=== PATIENT | male | born 1985 | race Caucasian/White ===

== ENCOUNTER 2018-05-16 12:37 | Emergency (ER) | payer OTHER, SELFPAY ==
[2018-05-16 12:38] VITALS: BP 147/103; PULSE 100; RESP 16; TEMP 36.3; O2SAT 97; BMI 60.3
--- NOTE | 2018-05-16 13:48 | RAD_ITS ---
STUDY: X-RAY CHEST REASON FOR EXAM: Male, 32 years old. Left posterior rib pain following a fall. TECHNIQUE: PA and lateral views of the chest. COMPARISON: None. FINDINGS: The lungs are clear and expanded. There is no demonstrated pleural abnormality. Normal size heart. Normal mediastinum and lillian. Normal visualized pulmonary arteries. Normal visualized aortic arch and descending thoracic aorta. There are degenerative changes of the visualized thoracic spine. Normal visualized ribs, clavicles, and shoulders. There is no demonstrated abnormality of the visualized soft tissue structures of the upper abdomen. RAD/Chest PA and Lateral IMPRESSION: Normal x-ray examination of the chest. Electronically Signed: Jamal Bobo MD at 14:17 EST Tel [phone], Service support ,
[2018-05-16] MEDS: Ibuprofen 600 MG Tablet PO (14:22)
--- NOTE | 2018-05-16 15:02 | ED.VISSUMM ---
- ER Visit Summary Date of Service: 05/16/18 Chief Complaint: Fall at work complaining of left posterior lateral rib cage and parathoracic pain. History of Present Illness: The patient is a 32 M. Prior history of A. fib for which she is on sotalol. Patient was walking in the work today slipped on the ice fell to both knees but is actual pain is in his left lower posterior back and rib cage. No head injury. No LOC. No prior back surgery. No weakness or numbness. Physical Examination: Well-appearing young male. Vital signs are stable he is afebrile. He does not look septic or toxic. He is in no acute distress. HEENT exam unremarkable atraumatic. Pupils round reactive light. C-spine nontender. Trachea midline. Lungs clear to auscultation bilaterally. Heart regular rate and rhythm no murmur. Chest anteriorly. Abdomen soft nontender normal bowel sounds no peritoneal signs. He is a very large individual. Patient is moving all 4 extremities. Neurovascularly intact. He has no significant tenderness to either knee. He has full flexion-extension. There is no deformity. He has bilateral normal appeals officer strength in bilateral dorsi and plantar flexion. He has full flexion extension of both knees. Back there is no cervical, thoracic, lumbar any spinal tenderness. He has left parathoracic and mid to lower left rib cage pain. There is no ecchymosis or bruising. There is no subcu air crepitance. Neurologically is awake alert with no focal motor deficits. Test Results: There is normal cardiac silhouette. There is no obvious rib fracture. Read both by myself and the radiologist. Emergency Department Course and Treatment: Repeat exam patient is doing well at 1456. No change of the exam. automatic cigar wrapper tender the same site. I discussed with him his x-ray results. Treatment Plan: Hot shower and warm bath to relax muscles. Motrin for pain. Follow-up with workers comp. Disposition: Discharge Impression: Fall at work Bilateral knee contusions Left posterior rib cage and muscular skeletal back strain This note was generated with [employer] dictation software. It may contain incorrect words, spelling, and punctuation that were not noted in review of the chart prior to signing ED Disposition - Plan for ED Patient: Chief Complaint: Back Referrals: Kathi Leyva MD [Primary Care Provider] -
--- NOTE | 2018-05-16 15:08 | ED.DCSUM_ITS ---
- ER Visit Summary Date of Service: 05/16/18 Chief Complaint: Fall at work complaining of left posterior lateral rib cage and parathoracic pain. History of Present Illness: The patient is a 32 M. Prior history of A. fib for which she is on sotalol. Patient was walking in the work today slipped on the ice fell to both knees but is actual pain is in his left lower posterior back and rib cage. No head injury. No LOC. No prior back surgery. No weakness or numbness. Physical Examination: Well-appearing young male. Vital signs are stable he is afebrile. He does not look septic or toxic. He is in no acute distress. HEENT exam unremarkable atraumatic. Pupils round reactive light. C-spine nontender. Trachea midline. Lungs clear to auscultation bilaterally. Heart regular rate and rhythm no murmur. Chest anteriorly. Abdomen soft nontender normal bowel sounds no peritoneal signs. He is a very large individual. Patient is moving all 4 extremities. Neurovascularly intact. He has no significant tenderness to either knee. He has full flexion-extension. There is no deformity. He has bilateral normal etl tester strength in bilateral dorsi and plantar flexion. He has full flexion extension of both knees. Back there is no cervical, thoracic, lumbar any spinal tenderness. He has left parathoracic and mid to lower left rib cage pain. There is no ecchymosis or bruising. There is no subcu air crepitance. Neurologically is awake alert with no focal motor deficits. Test Results: There is normal cardiac silhouette. There is no obvious rib fracture. Read both by myself and the radiologist. Emergency Department Course and Treatment: Repeat exam patient is doing well at 1456. No change of the exam. automatic beam warper tender the same site. I discussed with him his x-ray results. Treatment Plan: Hot shower and warm bath to relax muscles. Motrin for pain. Follow-up with workers comp. Disposition: Discharge Impression: Fall at work Bilateral knee contusions Left posterior rib cage and muscular skeletal back strain This note was generated with [employer] dictation software. It may contain incorrect words, spelling, and punctuation that were not noted in review of the chart prior to signing ED Disposition - Plan for ED Patient: Chief Complaint: Back Referrals: Kathi Leyva MD [Primary Care Provider] -
--- NOTE | 2018-05-16 15:09 | ED.DEP ---
ED Disposition - Plan for ED Patient: Disposition: Home or Assisted Living Chief Complaint: Back Instructions: ED Sprain Thoracic Spine Referrals: [facility] [GROUP OF PHYSICIANS] - As Needed Kathi Leyva MD [Primary Care Provider] - As Needed Additional Instructions: Hot shower. Warm bath. Motrin for pain. Ice to the area to decrease examination.
--- NOTE | 2018-05-16 15:12 | DCINST.ED_ITS ---
ED Disposition - Plan for ED Patient: Disposition: Home or Assisted Living Chief Complaint: Back Instructions: ED Sprain Thoracic Spine Referrals: [facility] [GROUP OF PHYSICIANS] - As Needed Kathi Leyva MD [Primary Care Provider] - As Needed Additional Instructions: Hot shower. Warm bath. Motrin for pain. Ice to the area to decrease examination.
[2018-05-16 15:25] VITALS: BP 140/78; PULSE 70; RESP 16; O2SAT 98
--- OUTSIDE RECORDS SUMMARY | 2018-07-11 13:32 | XMS RPT_ITS ---
:1985 Author Organization OH[facility] Care Team Providers Name Role Phone Kathi Leyva Primary Care Unavailable Anderson Sharpe Attending Unavailable Mickey Summers Attending Unavailable Kathi Leyva Referring Unavailable Kathi Leyva Primary Care Unavailable PROBLEMS PROBLEMS DATE TYPE CONDITION / CODE ATTENDING STATUS SOURCE 01/14/2018 Unknown I48.92 - Mickey Summers Active [place] Unspecified On License Of [facility] atrial flutter / Hospital I48.92(ICD-10) Repository PROCEDURES PROCEDURES No Procedure Records FoundRESULTS RESULTS EMERGENCY DEPARTMENT Observed: 05/16/2018 Status: F Source: [place] SUMMARY 4:17 PM [facility] REPOSITORY [facility] Medical Records Department [address] [place] [address] Emergency Department Summary 05/16/18 1502 MR#: [id number] Acct: [id number] Name: JAKUB AL Rep #: [id number] : 1985 32 From: Anderson Sharpe MD PCP: Kathi Leyva MD Status: DEP ER - ER Visit Summary Date of Service: 05/16/18 Chief Complaint: Fall at work complaining of left posterior lateral rib cage and parathoracic pain. History of Present Illness: The patient is a 32 M. Prior history of A. fib for which she is on sotalol. Patient was walking in the work today slipped on the ice fell to both knees but is actual pain is in his left lower posterior back and rib cage. No head injury. No LOC. No prior back surgery. No weakness or numbness. Physical Examination: Well-appearing young male. Vital signs are stable he is afebrile. He does not look septic or toxic. He is in no acute distress. HEENT exam unremarkable atraumatic. Pupils round reactive light. C-spine nontender. Trachea midline. Lungs clear to auscultation bilaterally. Heart regular rate and rhythm no murmur. Chest anteriorly. Abdomen soft nontender normal bowel sounds no peritoneal signs. He is a very large individual. Patient is moving all 4 extremities. Neurovascularly intact. He has no significant tenderness to either knee. He has full flexion-extension. There is no deformity. 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 He has full flexion extension of both knees. Back there is no cervical, thoracic, lumbar any spinal tenderness. He has left parathoracic and mid to lower left rib cage pain. There is no ecchymosis or bruising. There is no subcu air crepitance. Neurologically is awake alert with no focal motor deficits. Test Results: There is normal cardiac silhouette. There is no obvious rib fracture. Read both by myself and the radiologist. Emergency Department Course and Treatment: Repeat exam patient is doing well at 1456. No change of the exam. 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 I discussed with him his x-ray results. Treatment Plan: Hot shower and warm bath to relax muscles. Motrin for pain. Follow-up with workers comp. Disposition: Discharge Impression: Fall at work Bilateral knee contusions Left posterior rib cage and muscular skeletal back strain This note was generated with Zoodles dictation software. It may contain incorrect words, spelling, and punctuation that were not noted in review of the chart prior to signing ED Disposition - Plan for ED Patient: Chief Complaint: Back Referrals: Kathi Leyva MD [Primary Care Provider] - What to do if you have Problems For any increased pain, shortness of breath, bleeding, nausea or vomiting, chest pain, or any unexpected problems, contact your Primary Care Provider. Call [employer] [facility] ([phone]) or report to the closest Emergency Room. Call 911 if necessary. 05/16/181616 <Electronically signed by Anderson Sharpe MD> Date Anderson Sharpe MD Cosigner Signature (If Indicated): Date CC: Kathi Leyva MD DISCHARGE INSTRUCTION Observed: 05/16/2018 Status: F Source: [place] 4:17 PM [facility] REPOSITORY [facility] Medical Records Department [facility] [place] [address] Discharge Instruction 05/16/18 1509 MR#: [id number] Acct: [id number] Name: JAKUB AL Rep #: [id number] : 1985 32 From: Anderson Sharpe MD PCP: Kathi Leyva MD Status: DEP ER ED Disposition - Plan for ED Patient: Disposition: Home or Assisted Living Chief Complaint: Back Instructions: ED Sprain Thoracic Spine Referrals: [facility] [GROUP OF PHYSICIANS] - As Needed Kathi Leyva MD [Primary Care Provider] - As Needed Additional Instructions: Hot shower. Warm bath. Motrin for pain. Ice to the area to decrease examination. What to do if you have Problems For any increased pain, shortness of breath, bleeding, nausea or vomiting, chest pain, or any unexpected problems, contact your Primary Care Provider. Call [facility] ([phone]) or report to the closest Emergency Room. Call 911 if necessary. 05/16/181616 <Electronically signed by Anderson Sharpe MD> Date Anderson Sharpe MD Cosigner Signature (If Indicated): Date CC: Kathi Leyva MD CHEST PA AND LATERAL Observed: 05/16/2018 Status: F Source: [place] 1:43 PM [facility] REPOSITORY [facility] Imaging Services [address] [place] [address] Chest PA and Lateral MR#: [id number] Acct: [id number] Name: JAKUB AL Rep #: [id number] : 1985 M 32 From: Jamal Bobo MD PCP: Kathi Leyva MD Status: REG ER Study: Chest PA and Lateral Date of Exam: 05/16/18 Exam# [id number] Ordering Dr: Anderson Sharpe MD STUDY: X-RAY CHEST REASON FOR EXAM: Male, 32 years old. Left posterior rib pain following a fall. TECHNIQUE: PA and lateral views of the chest. COMPARISON: None. FINDINGS: The lungs are clear and expanded. There is no demonstrated pleural abnormality. Normal size heart. Normal mediastinum and lillian. Normal visualized pulmonary arteries. Normal visualized aortic arch and descending thoracic aorta. There are degenerative changes of the visualized thoracic spine. Normal visualized ribs, clavicles, and shoulders. There is no demonstrated abnormality of the visualized soft tissue structures of the upper abdomen. RAD/Chest PA and Lateral IMPRESSION: Normal x-ray examination of the chest. 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 [place] [address] OFFICE VISIT Date of Service: 01/14/18 MR#: [id number] Acct: [id number] Name: JAKUB AL Rep #: [id number] : 1985 Provider: Mickey Summers MD Age/Sex: 32/M Location: [facility] Status: Signed HPI HPI Chief Complaint: Follow-up visit. Details: JAKUB AL, is a 32 M who presents to the office today for a follow-up visit. He is a gentleman with a history of atrial flutter status post ablation at the [facility] who has been placed on sotalol. He continues to do well from the cardiac standpoint he denies any chest pain or shortness breath or paroxysmal nocturnal dyspnea or pedal edema he has been ablated over 7 years ago now. He has had no dizziness or diaphoresis no near syncope or syncope and he has been compliant with his medical therapy. His physical exam today demonstrates clear lung vega regular rate and rhythm and no pedal edema. His electrocardiogram does corroborate that he is in sinus rhythm with rate of 76 bpm his QT interval is 382 ms with a corrected QT of 410 ms. 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 [Ecotrin] 81 mg PO DAILY@0800 06/08/14 [History Confirmed 01/14/18] Multivitamins,Therapeutic [Multivitamin] 1 tab PO DAILY 06/08/14 [History Confirmed 01/14/18] Acid Insole Buffer 1 PO DAILY PRN PRN 09/21/14 [History Confirmed 01/14/18] sotalol 120 mg tablet 120 mg PO BID #180 tab 07/02/17 [Rx Confirmed 01/14/18] PFSH Medical History Morbid (severe) obesity due to excess calories (Chronic) Atrial flutter (Chronic) Surgical History Hx of appendectomy (Resolved) Hx of cholecystectomy (Resolved) Family History Father Hypertension Social History Smoking Status: Never smoker ROS Const Const: Negative for fatigue, weakness, night sweats, excessive sweating, frequent falls, headache(s) or daytime sleepiness Eyes Eyes: Negative for loss of peripheral vision, transient loss of vision, blind spots, double vision or blurry vision ENT ENT: Negative for headache(s), dizziness, balance problems, Nosebleed/epistaxis, tongue swelling or lip swelling Cardio Chest Pain: No Palpitations: No Edema: None Muscle aches with walking: None Resp Respiratory: Negative for SOB at rest, SOB orthopnea\SOB lying down, Cough, paroxysmal nocturnal dyspnea or SOB with activity GI GI: Negative nausea, vomiting, heartburn, black,tarry stools or bright, red blood in stools : Negative for hematuria Musc Musc: Negative for balance problems, muscle aches/ myalgia, muscle weakness or joint pain Skin Skin: Negative non-healing lesions, unusual bruising or rash Neuro Neuro: Negative for weakness, frequent falls, headache(s), double vision, dizziness, lightheadedness, orthostatic symptoms, blurry vision or lack of coordination Andrea Hematologic/Lymphatic: Negative for easy bruising or easy bleeding Endo Endo: Negative for fatigue, excessive sweating, cold intolerance, heat intolerance, increased thirst/drinking or hair loss Psych Psych: Negative for anxiety or depression Allergy Allergy/Immunology: Negative for throat swelling, Negative for tongue swelling, Negative for hives, Negative for rash, Negative for lip swelling Cardiology Exam Const Appearance: cooperative, healthy appearing, well developed, well groomed and no acute distress Nutritional Appearance: well nourished and average body habitus Orientation: alert, awake and oriented x3 Head Head: normal to inspection, normocephalic and atraumatic Ears: hearing grossly normal bilaterally and external ears normal Nose: external nose normal, nasal mucous membranes and turbinates normal, nares normal, septum normal, no nasal discharge Face and Sinus: face symmetric Mouth: oral mucosae normal, tongue normal, oropharynx normal and moist mucous membranes Teeth and gingiva: dentition normal Throat: posterior oropharynx normal, tonsils normal and uvula midline Eyes General: appearance normal, both eyes and all related structures Eyelids: eyelids normal Conjunctivae: conjunctivae normal Pupils: PERRL, normal by confrontation and accommodation normal EOM: EOM intact bilaterally Neck Neck: normal visual inspection, trachea midline and no JVD JVD: +5 Carotids: normal carotid upstroke and bounding pulses Chest Chest inspection: normal inspection of the chest, symmetric chest movement and normal respiratory effort Auscultation: Bilateral: Clear to Auscultation Cardio Palpation: normal PMI Rate: regular rate Rhythm: regular rhythm Heart sounds: S1 normal, S2 normal and normal, physiologic split S2; negative rub, gallop or murmur GI GI: normal to inspection, soft, no hepatosplenomegaly and bowel sounds present Neuro General: alert, awake, oriented x3, no focal sensory deficit, gait normal and moves all extremities Skin Skin: no rashes or lesions noted Extremities Pulses: Normal: Right Femoral Pulse, Left Femoral Pulse, Right Dorsalis Pedis Pulse, Left Dorsalis Pedis Pulse, Right Posterior Tibial Pulse, Left Posterior Tibial Pulse, Right Radial Pulse, Left Radial Pulse Lower Extremity Edema: None: Bilateral Musculoskel Musculoskeletal: No joint tenderness Psych Psychological: normal affect Assessment AND Plan 1. Atrial flutter I48.92 Plan He is status post atrial flutter ablation and appears to be maintaining sinus rhythm on his sotalol with an EKG which appears to be stable. No medication changes will be made dietary and risk factor modification have been emphasized. Thank you for allowing me to participate in his care. Orders Orders: Plan Detail Follow Up 1 Year (mobile qa tester) Coding Level of Care Code Off vis,est,level 3 Diagnoses Atrial flutter I48.92 Coding Level of Care Code Off vis,est,level 3 Diagnoses Atrial flutter I48.92 01/14/18 1034 <Electronically signed by Mickey Summers MD> Date Mickey Summers MD Cosigner Signature: Date (if applicable) CC: Kathi Leyva MD ALLERGIES ALLERGIES DATE TYPE / CODE NAME / CODE REACTION SEVERITY SOURCE 01/14/2018 Drug No Known Unknown [place] On License Of [facility] Allergy/4160 Allergies/F00 Hospital 92243(SNOMED [id number](RXNOR Repository CT) M) ENCOUNTERS ENCOUNTERS ADMIT/DISCHARGE ACCOUNT ADMITTING ENCOUNTER LOCATION SOURCE NUMBER CLASS 05/16/2018/ [id number] Emergency [place] [facility] [facility] ing:ED Repository 01/14/2018/ [id number] Ambulatory BMSBuilding:B [place] [facility] 0 [facility] Repository PAYERS PAYERS ENCOUNTER GUARANTOR PAYER SUBSCRIBER SOURCE 05/16/2018 JAKUB M Primary Insurance:OBW JAKUB [place] [id number] OLD COMP MANAGEMENTPolicy [facility]: [id number] [id number] Repository [address]Abm: (330) Date:[id number] () [address], [place] [address]AT: 05/16/2018 Secondary JAKUB M [place] Insurance:CIGNAPolicy HENDRIXDOB: On License Of [facility] Number: [id number] [id number] Repository Date:[id number], [place] [address]QJ: 05/16/2018 Tertiary NOT GIVENUNK [place] Insurance:SELF PAY [facility] Number: Effective Repository Date:2018-05-16 01/14/2018 JAKUB [place] Primary JAKUB [place] [id number] OLD Insurance:CIGNAPolicy [facility]: [id number] [id number] Repository [address]Qyn: (330) Date:[id number] [address] () [place], [place] [address]AJ: 01/14/2018 Secondary NOT GIVENUNK [place] Insurance:SELF PAY [facility] Number: Effective Repository Date:2017-12-02
== END 2018-05-16 15:26 | disposition home or self-care (01) ==
PROVIDERS: Emergency Provider Emergency Medicine; Family Provider Family Medicine; PCP Family Medicine
DX: S29.012A Strain of muscle and tendon of back wall of thorax, initial encounter (principal); S29.011A Strain of muscle and tendon of front wall of thorax, initial encounter; S80.01XA Contusion of right knee, initial encounter; S80.02XA Contusion of left knee, initial encounter; I48.91 Unspecified atrial fibrillation; Z79.82 Long term (current) use of aspirin; Z79.899 Other long term (current) drug therapy; W00.0XXA Fall on same level due to ice and snow, initial encounter; Y93.01 Activity, walking, marching and hiking; Y92.89 Other specified places as the place of occurrence of the external cause; Y99.0 Civilian activity done for income or pay
CPT/HCPCS: 71046; 99282

== ENCOUNTER → 2018-06-30 15:04 | Outpatient (CLI) | payer OTHER, SELFPAY ==
--- NOTE | 2018-06-30 15:21 | RAD_ITS ---
STUDY: X-RAY - ORBITS REASON FOR EXAM: Male, 32 years old. This study is being performed as a clearance examination for exclusion of orbital metal, prior to the performance of an MRI examination. TECHNIQUE: 2 view(s) of the orbits were obtained. COMPARISON: None. FINDINGS: Normal bilateral orbits without a metallic orbital foreign body. Normal visualized facial bones. Normal paranasal sinuses. The soft tissue structures are unremarkable. RAD/Orbits for Foreign Body IMPRESSION: No demonstrated metallic orbital foreign body. Electronically Signed: Guillermo Cash MD at 15:39 EST Tel , Service support ,
== END ==
PROVIDERS: Family Provider Family Medicine; PCP Family Medicine; Referring Provider Family Medicine; Visit Provider Family Medicine
DX: Z01.818 Encounter for other preprocedural examination (principal)
CPT/HCPCS: 70030

== ENCOUNTER 2018-07-08 11:26 | Emergency (ER) | payer OTHER, SELFPAY ==
[2018-07-08 11:27] VITALS: BP 159/101; PULSE 102; RESP 18; TEMP 36.6; O2SAT 98; BMI 61.0
--- NOTE | 2018-07-08 11:44 | ED.VISSUMM ---
- ER Visit Summary Date of Service: 07/08/18 Chief Complaint: Back pain History of Present Illness: The patient is a 32 M with left lower back pain that radiates down his left leg. This has been going on for a month and a half after he slipped on ice. He was following up with the doctor who gave him a Toradol shot yesterday. He was referred to orthospine but has not been evaluated yet. He said that if the Toradol was not helping his pain, he should be checked out in the emergency department. No interval injuries or new symptoms. Patient has been taking Flexeril and an anti-inflammatory as well at home, but the pain is not under control. No bowel or bladder issues. No weakness or numbness. No other problems. Physical Examination: Afebrile and vital signs unremarkable. Alert and oriented. No acute distress. Abdomen soft and nontender. Back shows normal inspection. Neurovascular intact distally. Good strength and sensation. Test Results: None performed Emergency Department Course and Treatment: Patient has worsening of his back pain. No interval traumas or new or concerning symptoms. Patient has been taking anti-inflammatories and muscle relaxers with no improvement. He was referred to the emergency department for stronger medication. He does have follow-up with a non destructive testing specialist. Patient was treated here with Norflex and Dilaudid. Patient was prescribed a short course of Percocet. Continue taking his home medications. Follow-up with the specialist as planned. Return for any new or worsening issues. Treatment Plan: As above Disposition: Discharge Impression: 1. Left lumbar back pain This note was generated with [employer] dictation software. It may contain incorrect words, spelling, and punctuation that were not noted in review of the chart prior to signing ED Disposition - Plan for ED Patient: Chief Complaint: Back Referrals: Kahti Leyva MD [Primary Care Provider] -
--- NOTE | 2018-07-08 11:47 | ED.DCSUM_ITS ---
- ER Visit Summary Date of Service: 07/08/18 Chief Complaint: Back pain History of Present Illness: The patient is a 32 M with left lower back pain that radiates down his left leg. This has been going on for a month and a half after he slipped on ice. He was following up with the doctor who gave him a Toradol shot yesterday. He was referred to orthospine but has not been evaluated yet. He said that if the Toradol was not helping his pain, he should be checked out in the emergency department. No interval injuries or new symptoms. Patient has been taking Flexeril and an anti-inflammatory as well at home, but the pain is not under control. No bowel or bladder issues. No weakness or numbness. No other problems. Physical Examination: Afebrile and vital signs unremarkable. Alert and oriented. No acute distress. Abdomen soft and nontender. Back shows normal inspection. Neurovascular intact distally. Good strength and sensation. Test Results: None performed Emergency Department Course and Treatment: Patient has worsening of his back pain. No interval traumas or new or concerning symptoms. Patient has been taking anti-inflammatories and muscle relaxers with no improvement. He was referred to the emergency department for stronger medication. He does have follow-up with a a r specialist. Patient was treated here with Norflex and Dilaudid. Patient was prescribed a short course of Percocet. Continue taking his home medications. Follow-up with the specialist as planned. Return for any new or worsening issues. Treatment Plan: As above Disposition: Discharge Impression: 1. Left lumbar back pain This note was generated with [employer] dictation software. It may contain incorrect words, spelling, and punctuation that were not noted in review of the chart prior to signing ED Disposition - Plan for ED Patient: Chief Complaint: Back Referrals: Kathi Leyva MD [Primary Care Provider] -
--- NOTE | 2018-07-08 11:47 | ED.DEP ---
ED Disposition - Plan for ED Patient: Chief Complaint: Back Instructions: ED Sprain Strain Lumbar Prescriptions: Oxycodone HCl/Acetaminophen [Percocet 5/325] 1 tab PO Q6H PRN PRN 3 Days #12 tab PRN Reason: Pain Additional Instructions: follow up with your specialists as planned. return for any new or worsening issues
[2018-07-08] MEDS: Orphenadrine 60 MG/2 ML Ampul IM (11:52)
[2018-07-08] MEDS: HYDROmorphone 1 MG/ML Syringe SC (11:52)
[2018-07-08 12:24] VITALS: BP 150/73; PULSE 91; RESP 18; O2SAT 97
--- OUTSIDE RECORDS SUMMARY | 2018-09-09 15:57 | XMS RPT_ITS ---
:1985 Author Organization OHIP Care Team Providers Name Role Phone Ravinder Allred Attending Unavailable Ravinder Allred Referring Unavailable Kathi Leyva Primary Care Unavailable Kathi Leyva Primary Care Unavailable Hunter Nagel Attending Unavailable Mickey Summers Attending Unavailable Kathi Leyva Referring Unavailable Kathi Leyva Primary Care Unavailable Kathi Leyva Primary Care Unavailable Anderson Sharpe Attending Unavailable PROBLEMS PROBLEMS DATE TYPE CONDITION / CODE ATTENDING STATUS SOURCE 07/08/2018 Unknown M54.5 - Low back Hunter Nagel Active [facility] M54.5(ICD-10) Hospital Repository 01/14/2018 Unknown I48.92 - KristopherSamson barlowril Active [facility] atrial flutter / Hospital I48.92(ICD-10) Repository PROCEDURES PROCEDURES No Procedure Records FoundRESULTS RESULTS EMERGENCY DEPARTMENT Observed: 07/08/2018 Status: F Source: [place] SUMMARY 4:[address] [facility] REPOSITORY [facility] Medical Records Department [address] [place] [address] Emergency Department Summary 07/08/18 1144 MR#: [id number] Acct: [id number] Name: JAKUB AL Rep #: [id number] : 1985 32 From: Hunter Nagel MD PCP: Kathi Leyva MD Status: DEP ER - ER Visit Summary Date of Service: 07/08/18 Chief Complaint: Back pain History of Present Illness: The patient is a 32 M with left lower back pain that radiates down his left leg. This has been going on for a month and a half after he slipped on ice. He was following up with the doctor who gave him a Toradol shot yesterday. He was referred to orthospine but has not been evaluated yet. He said that if the Toradol was not helping his pain, he should be checked out in the emergency department. No interval injuries or new symptoms. Patient has been taking Flexeril and an anti-inflammatory as well at home, but the pain is not under control. No bowel or bladder issues. No weakness or numbness. No other problems. Physical Examination: Afebrile and vital signs unremarkable. Alert and oriented. No acute distress. Abdomen soft and nontender. Back shows normal inspection. Neurovascular intact distally. Good strength and sensation. Test Results: None performed Emergency Department Course and Treatment: Patient has worsening of his back pain. No interval traumas or new or concerning symptoms. Patient has been taking anti-inflammatories and muscle relaxers with no improvement. He was referred to the emergency department for stronger medication. He does have follow-up with a at risk specialist. Patient was treated here with Norflex and Dilaudid. Patient was prescribed a short course of Percocet. Continue taking his home medications. Follow-up with the specialist as planned. Return for any new or worsening issues. Treatment Plan: As above Disposition: Discharge Impression: 1. Left lumbar back pain This note was generated with Clodicoation software. It may contain incorrect words, spelling, [...] problems, contact your Primary Care Provider. Call [facility] ([phone]) or report to the closest Emergency Room. Call 911 if necessary. 07/08/181613 <Electronically signed by Hunter Nagel MD> Date Hunter Nagel MD Cosigner Signature (If Indicated): Date CC: Kathi Leyva MD DISCHARGE INSTRUCTION Observed: 07/08/2018 Status: F Source: [place] 4:[address] [facility] REPOSITORY [facility] Medical Records Department [address] [place] [address] Discharge Instruction 07/08/18 1147 MR#: [id number] Acct: [id number] Name: JAKUB AL Melyssa Rep #: [id number] : 1985 32 From: Hunter Nagel MD PCP: Kathi Leyva MD Status: [facility] ER ED Disposition - Plan for ED Patient: Chief Complaint: Back Instructions: ED Sprain Strain Lumbar Prescriptions: Oxycodone HCl/Acetaminophen [Percocet 5/325] 1 tab PO Q6H PRN PRN 3 Days #12 tab PRN Reason: Pain Additional Instructions: follow up with your specialists as planned. return for any new or worsening issues What to do if you have Problems For any increased pain, shortness of breath, bleeding, nausea or vomiting, chest pain, or any unexpected problems, contact your Primary Care Provider. Call [facility] ([phone]) or report to the closest Emergency Room. Call 911 if necessary. 07/08/184 <Electronically signed by Hunter Nagel MD> Date Hunter Nagel MD Cosigner Signature (If Indicated): Date CC: Kathi Leyva MD ORBITS FOR FOREIGN Observed: 06/30/2018 Status: F Source: [place] 3:[address] [facility] REPOSITORY [facility] Imaging Services [address] [place] [address] Orbits for Foreign Body MR#: [id number] Acct: [id number] Name: JAKUB AL Rep #: [id number] : 1985 M 32 From: Guillermo Cash MD PCP: Kathi Leyva MD Status: REG CLI Study: Orbits for Foreign Body Date of Exam: 06/30/18 Exam# [id number] Ordering Dr: Ravinder Allred MD STUDY: X-RAY - ORBITS REASON FOR EXAM: Male, 32 years old. This study is being performed as a clearance examination for exclusion of orbital metal, prior to the performance of an MRI examination. TECHNIQUE: 2 view(s) of the orbits were obtained. COMPARISON: None. FINDINGS: Normal bilateral orbits without a metallic orbital foreign body. Normal visualized facial bones. Normal paranasal sinuses. The soft tissue structures are unremarkable. RAD/Orbits for Foreign Body IMPRESSION: No demonstrated metallic orbital foreign body. Electronically Signed: Guillermo Csah MD at 15:39 EST Tel , Service support , CC: Kathi Leyva MD; Ravinder Allred MD [employer]: Signed EMERGENCY DEPARTMENT Observed: 05/16/2018 Status: F Source: [place] SUMMARY 4:[address] [facility] REPOSITORY [facility] Medical Records Department [address] [place] [address] Emergency Department Summary 05/16/18 1502 MR#: [id number] Acct: [id number] Name: JAKUB AL Rep #: [id number] : 1985 32 From: Anderson Sharpe MD [...] is no deformity. 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 [...] at 1456. No change of the exam. 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 I discussed with him his x-ray results. Treatment Plan: Hot shower and warm bath to relax muscles. Motrin for pain. Follow-up with workers comp. Disposition: Discharge Impression: Fall at work Bilateral knee contusions Left posterior rib cage and muscular skeletal back strain This note was generated with Buzz360 dictation software. It may contain incorrect words, [...] your Primary Care Provider. Call [facility] ([phone]) or report to the closest Emergency Room. Call 911 if necessary. 05/16/18 1617 <Electronically signed by Anderson Sharpe MD> Date Anderson Sharpe MD Cosigner Signature (If Indicated): Date CC: Kathi Leyva MD DISCHARGE INSTRUCTION Observed: 05/16/2018 Status: F Source: [place] 4:[address] [facility] REPOSITORY [facility] Medical Records Department [address] [place] [address] Discharge Instruction 05/16/18 1509 MR#: [id number] Acct: [id number] Name: JAKUB AL Rep #: [id number] : 1985 32 From: Anderson Sharpe MD PCP: Kathi Leyva MD Status: [facility] ER ED Disposition - Plan for ED [...] your Primary Care Provider. Call [facility] ([phone]) or report to the closest Emergency Room. Call 911 if necessary. 05/16/18 1617 <Electronically signed by Anderson Sharpe MD> Date Anderson Sharpe MD Cosigner Signature (If Indicated): Date CC: Kathi Leyva MD CHEST PA AND LATERAL Observed: 05/16/2018 Status: F Source: [place] 1:[address] [facility] REPOSITORY [facility] Imaging Services [address] [place] [address] Chest PA and Lateral MR#: [id number] Acct: [id number] Name: JAKUB AL Rep #: [id number] : 1985 M 32 From: Jamal Bobo MD PCP: Kathi Leyva MD Status: REG ER Study: Chest PA and Lateral Date of Exam: 05/16/18 Exam# [id number] Ordering Dr: Anderson Sharpe MD STUDY: X-RAY [...] Jamal Bobo MD at 14:17 EST Tel [phone], Service support , CC: Kathi Leyva MD; Anderson Sharpe MD [employer]: Signed CARDIOLOGY VISIT Observed: 01/14/2018 Status: F Source: [place] REPORT 10:[address] [facility] REPOSITORY [facility] [address] [place] [address] OFFICE VISIT Date of Service: 01/14/18 MR#: [id number] Acct: [id number] Name: JAKUB AL Rep #: [id number] : 1985 Provider: Mickey Summers MD Age/Sex: 32/M Location: [facility] Status: Signed HPI HPI Chief Complaint: Follow-up visit. Details: JAKUB AL, is a 32 M who presents to the office today for a follow-up visit. He is a gentleman with a history of atrial flutter status post ablation at the [facility] who has been placed on sotalol. 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) Coding Level of Care Code Off vis,est,level 3 Diagnoses Atrial flutter I48.92 Coding Level of Care Code Off vis,est,level 3 Diagnoses Atrial flutter I48.92 01/14/18 1034 <Electronically signed by Mickey Summers MD> Date Mickey Summers MD Cosigner Signature: Date (if applicable) CC: Kathi Leyva MD ALLERGIES ALLERGIES DATE TYPE / CODE NAME / CODE REACTION SEVERITY SOURCE 07/08/2018 Drug No Known Unknown [facility] Allergy/4160 Allergies/F00 Hospital 26065(SNOMED 7247308(RXNOR Repository CT) M) ENCOUNTERS ENCOUNTERS ADMIT/DISCHARGE ACCOUNT ADMITTING ENCOUNTER LOCATION SOURCE NUMBER CLASS 07/08/2018/ [id number] Emergency [facility] ing:ED Repository 06/30/2018 [id number] Ambulatory [facility] [place] 6 [facility] ing:RAD Repository 05/16/2018/ [id number] Emergency [place] 8 2 [facility] ing:ED Repository 01/14/2018/ [id number] Ambulatory BMSBuilding:B [place] 8 0 [facility] Repository PAYERS PAYERS ENCOUNTER GUARANTOR PAYER SUBSCRIBER SOURCE 07/08/2018 JAKUB [place] Primary Insurance:OB JAKUB [place] [id number] OLD COMP PATRIZIAPolrufino CORNEJO: [facility] Number: [id number] [id number] Repository [address]Xqc: [address] Date:6524-44-96XB [phone] () [place], [place] [address]QR: 07/08/2018 Secondary JAKUB Ragsdale [facility] Insurance:CIGNAPolicy HENDRIXDOB: Community Number: [id number] [facility] [id number] Repository Date:3723-64-35AK [address], [place] [address]ID: 07/08/2018 Tertiary NOT GIVENUNK [place] Insurance:SELF PAY [facility] Number: Effective Repository Date:2018-07-08 06/30/2018 JAKUB Ragsdale Primary Insurance:OB JAKUB Combsoster [id number] OLD COMP MANAGEMENTPolicy HENDRIXDOB: [facility] [place]ME[place] Number: [id number], [place] [id number] Repository [address]Krk: (330) Date:6167-61-34KR [phone] () [place], [place] [address]GY: 06/30/2018 Secondary JAKUB Ragsdale [facility] Insurance:CIGNAPolicy HENDRIXDOB: Community Number: [id number] Hospital [id number] Repository Date:3693-28-53OI [address]XWWRMZTJFR, [place] [address]PS: 06/30/2018 Tertiary NOT GIVENUNK [place] Insurance:SELF PAY [facility] Number: Effective Repository Date:2018-06-30 05/16/2018 JAKUB Ragsdale Primary Insurance:[facility] JAKUB [place] [id number] OLD COMP MANAGEMENTPolicy HENDRIXDOB: [facility] [place] Number: [id number], [place] [id number] Repository [address]Uyy: (330) Date:7014-53-62MP [phone] ) [place], [place] [address]GI: 05/16/2018 Secondary JAKUB Ragsdale [facility] Insurance:CIGNAPolicy HENDRIXDOB: Community Number: [id number] Hospital [id number] Repository Date:5545-96-43FL [address], [place] [address]LM: 05/16/2018 Tertiary NOT GIVENUNK [place] Insurance:SELF PAY [facility] Number: Effective Repository Date:2018-05-16 01/14/2018 JAKUB Ragsdale Primary JAKUB R[place] [id number] OLD Insurance:CIGNAPoljanety BAMXDOB: [facility] Number: [id number] [facility] HospitalsY[facility] [place] [id number] Repository [address]Zzl: 330) Date:7939-02-46HD [phone] () [place], [place] [address]PW: 01/14/2018 Secondary NOT GIVENUNK [facility] Insurance:SELF PAY [facility] Number: Effective Repository Date:2017-12-02
== END 2018-07-08 12:26 | disposition home or self-care (01) ==
LOC: ED 12:09
PROVIDERS: Emergency Provider Emergency Medicine; Family Provider Family Medicine; PCP Family Medicine
DX: M54.5 Low back pain (principal); Z79.82 Long term (current) use of aspirin; Z79.899 Other long term (current) drug therapy
CPT/HCPCS: 96372; 99282

== ENCOUNTER 2018-07-31 12:45 | Emergency (ER) | payer OTHER, SELFPAY ==
[2018-07-31 12:46] VITALS: PULSE 127; RESP 18; TEMP 37; O2SAT 97; BMI 60.3
[2018-07-31 13:14] VITALS: BP 155/101; PULSE 96; RESP 14; O2SAT 94
[2018-07-31] MEDS: HYDROmorphone 1 MG/ML Syringe SC ×2 (13:24→15:22)
[2018-07-31] MEDS: Orphenadrine 60 MG/2 ML Ampul IM (13:24)
--- NOTE | 2018-07-31 16:09 | ED.VISSUMM ---
- ER Visit Summary Date of Service: 07/31/18 Chief Complaint: Pain History of Present Illness: The patient is a 32 M with lower back pain. Symptoms have been going on for months. He has lower back pain that radiates down his left leg. He has been taking prednisone and Aleve. He received a dose of Toradol but it is not helping. He denies any new injury or interval change other than increasing severity today. Patient is planning to follow-up as an outpatient for back injections. Physical Examination: Afebrile and vital signs unremarkable. Hypertensive. Back shows no spinal tenderness. He has diffuse lumbar muscle tenderness. Skin unremarkable. Straight leg raise negative. Good strength and sensation. Neurovascular intact. Test Results: None indicated Emergency Department Course and Treatment: Patient treated with Norflex and Dilaudid. He required a second dose of Dilaudid. On further reevaluation, he was able to stand and ambulate without assistance. Patient will be discharged home for outpatient follow-up. He has prescription for Percocet. Return for any new or worsening issues. Treatment Plan: As above Disposition: Discharge Impression: 1. Lumbar back pain with left-sided sciatica This note was generated with [employer] dictation software. It may contain incorrect words, spelling, and punctuation that were not noted in review of the chart prior to signing ED Disposition - Plan for ED Patient: Referrals: Kathi Leyva MD [Primary Care Provider] -
--- NOTE | 2018-07-31 16:11 | ED.DEP ---
ED Disposition - Plan for ED Patient: Instructions: ED Spasm Back No Trauma Additional Instructions: follow up with your specialist
== END 2018-07-31 16:19 | disposition home or self-care (01) ==
LOC: ED 14:10
PROVIDERS: Emergency Provider Emergency Medicine; Family Provider Family Medicine; PCP Family Medicine
DX: M54.42 Lumbago with sciatica, left side (principal); Z79.52 Long term (current) use of systemic steroids; Z79.82 Long term (current) use of aspirin; Z79.891 Long term (current) use of opiate analgesic; Z79.899 Other long term (current) drug therapy
CPT/HCPCS: 96372; 99282

== ENCOUNTER 2018-09-01 08:10 | Day surgery (SDC) | payer OTHER, SELFPAY ==
[2018-09-01 09:02] VITALS: BP 130/67; PULSE 84; RESP 18; TEMP 36.6; O2SAT 97; BMI 62.7
--- NOTE | 2018-09-01 09:54 | RAD_ITS ---
CLINICAL HISTORY: Male, 32 years old. Lower back pain PROCEDURE: EPIDUROGRAM - Caudal block FLUOROSCOPY TIME (if supplied): (0:30) minutes. 2 Images. TECHNIQUE: Fluoroscopic-guided sacral epidural space. RAD/Fluor Guidance for Spine Inj IMPRESSION: Successful sacral epidural steroid injection under fluoroscopic guidance. Electronically Signed: Keith Wilson, at 16:02 EDT Tel , Service support ,
[2018-09-01] MEDS: MethylPREDNISolone Acetate 80 MG/ML Vial (10:00)
[2018-09-01] MEDS: Bupivacaine 0.25% 30 ML Vial (10:00)
[2018-09-01 10:10] VITALS: BP 127/82; BP 130/67; PULSE 93; RESP 16; TEMP 36.7; O2SAT 96
[2018-09-01 10:15] VITALS: BP 119/73; BP 130/67; PULSE 86; RESP 16; O2SAT 96
[2018-09-01 10:20] VITALS: BP 125/84; BP 130/67; PULSE 84; RESP 16; O2SAT 96
[2018-09-01 10:25] VITALS: BP 130/67; BP 135/52; PULSE 89; RESP 16; TEMP 36.6; O2SAT 96
--- NOTE | 2018-09-01 10:41 | OP.PCM_ITS ---
Problem List (1) Disc displacement, lumbar Status: Acute Report of Operation Date of Procedure: 09/01/18 Pre-Operative Diagnosis: Lumbar disc displacement Post-Operative Diagnosis: Lumbar disc displacement Surgery/Procedure Performed:: Diagnostic/therapeutic caudal epidural steroid injection Description of Surgical Findings:: PROCEDURE: Diagnostic/therapeutic caudal epidural steroid injection PREOPERATIVE DIAGNOSIS: Lumbar disc displacement POSTOPERATIVE DIAGNOSIS: Lumbar disc displacement ANESTHESIA: [place] COMPLICATIONS: None BLOOD LOSS: Minimal PROCEDURE IN DETAIL: History and physical today was reviewed. Risks and benefits of the procedure were explained. The patient understood, agreed to our procedure, and informed consent was obtained. IV inserted per routine protocol. The patient was taken to the operating room, placed in a prone position with a pillow positioned underneath the abdomen. The lower back and tailbone area was prepped and draped in a sterile fashion using iodine x3 under fluoroscopy guidance on the lateral view the caudal space was identified the skin and subcutaneous tissue anesthetized approximately 3 cc of 1% lidocaine using a 25-gauge regular needle under direct visualization fluoroscopy in a lateral view using a 22-gauge 3-1/2 inch spinal needle the needle was advanced via the skin through the sacral hiatus tip of the needle passed through the sacrococcygeal ligament advanced approximately S4 area after negative aspiration for blood or CSF a total of 3 cc of contrast were injected to confirm correct placement of the needle as well as cephalad spread the spread was followed to approximately L5 area after confirmation of AP as well as lateral view and repeated negative aspiration a total of 15 cc of preservative- free 0.125% Marcaine with 80 mg of Depo-Medrol were injected easily. The needles were then removed intact. The patient experienced no signs or symptoms intrathecal, intravascular injection. The patient experienced no paraesthesia. The procedure was completed without any apparent difficult, any complication. The patient appeared to tolerate well. ASSESSMENT AND PLAN: This is a 32-year-old male with lumbar disc displacement status post diagnostic/therapeutic caudal epidural steroid injection patient would continue his current medications the patient will follow in approximately 2 weeks for reevaluation.
[2018-09-01 10:43] VITALS: BP 130/67
== END 2018-09-01 10:44 | disposition home or self-care (01) ==
LOC: SDC 08:11 → AC 08:48
PROVIDERS: Family Provider Family Medicine; PCP Family Medicine; Referring Provider Anesthesiology Pain Medicine; Visit Provider Anesthesiology Pain Medicine
PROC: 3E0S3BZ Introduction of Anesthetic Agent into Epidural Space, Percutaneous Approach (ICD-10-PCS; CPT 62282; principal; 2018-09-01 09:25)
DX: S39.012A Strain of muscle, fascia and tendon of lower back, initial encounter (principal); M51.26 Other intervertebral disc displacement, lumbar region; I48.91 Unspecified atrial fibrillation; Z79.82 Long term (current) use of aspirin; Z79.899 Other long term (current) drug therapy
CPT/HCPCS: 62323; 64520; 64483; 77003; J7120; J3490

== ENCOUNTER 2018-09-29 08:45 | Day surgery (SDC) | payer OTHER, SELFPAY ==
[2018-09-29] VITALS (7 sets, daily range): BP systolic 116–138; BP diastolic 65–108; PULSE 81–85; RESP 18; TEMP 36.6–36.8; O2SAT 95–98; BMI 63.8
--- NOTE | 2018-09-29 10:10 | RAD_ITS ---
PROCEDURE: Caudal block. DATE OF EXAMINATION: September 29, 2018. INDICATION: Male, 33 years old. Low back pain. FLUOROSCOPY TIME (if supplied): (0:33) minutes/seconds. 2 coned down intraoperative views of the sacrum were obtained. The spinal needle is seen along the posterior midportion of the sacrum. RAD/Fluor Guidance for Spine Inj IMPRESSION: Intraoperative imaging provided for caudal block. Electronically Signed: Jamal Bobo, at 11:23 EDT , Service support ,
[2018-09-29] MEDS: MethylPREDNISolone Acetate 80 MG/ML Vial (10:25)
[2018-09-29] MEDS: Bupivacaine 0.25% 30 ML Vial (10:25)
--- NOTE | 2018-09-29 10:40 | PCM.OPRPT ---
Problem List (1) Disc displacement, lumbar Status: Chronic Report of Operation Date of Procedure: 09/29/18 Pre-Operative Diagnosis: Lumbar disc displacement Post-Operative Diagnosis: Lumbar disc displacement Surgery/Procedure Performed:: Caudal epidural steroid injection Description of Surgical Findings:: PROCEDURE: Caudal epidural steroid injection PREOPERATIVE DIAGNOSIS: Lumbar disc displacement POSTOPERATIVE DIAGNOSIS: Lumbar disc displacement ANESTHESIA: MAC COMPLICATIONS: None BLOOD LOSS: Minimal PROCEDURE IN DETAIL: History and physical today was reviewed. Risks and benefits of the procedure were explained. The patient understood, agreed to our procedure, and informed consent was obtained. IV inserted per routine protocol. The patient was taken to the operating room, placed in a prone position with a pillow positioned underneath the abdomen. The lower back and tailbone area was prepped and draped in a sterile fashion using iodine ?3 under fluoroscopy guidance on the lateral view the caudal space was identified the skin and subcutaneous tissue and size approximately 3 cc of 1% lidocaine using a 25-gauge regular needle under direct visualization fluoroscopy using the lateral approach using a 22-gauge 3-1/2 inch spinal needle the needle was advanced via the skin through the sacral hiatus, tip of the needle passed through the sacrococcygeal ligament advanced approximately S4 area after negative aspiration for blood or CSF a total of 3 cc of contrast were injected to confirm correct placement of the needle as well as cephalad spread the spread was followed to approximately L5 area after confirmation on AP as well as lateral view and repeated negative aspiration, a total of 15 cc of preservative-free 0.125% Marcaine with 80 mg of the portal was injected easily. The needles were then removed intact. The patient experienced no signs or symptoms intrathecal, intravascular injection. The patient experienced no paraesthesia. The procedure was completed without any apparent difficult, any complication. The patient appeared to tolerate well. ASSESSMENT AND PLAN: This is a 33-year-old male with lumbar disc displacement status post caudal epidural steroid injection. The patient will continue his current medications. The patient will follow in approximately 2 weeks for reevaluation.
== END 2018-09-29 11:07 | disposition home or self-care (01) ==
LOC: SDC 08:45 → AC 08:51
PROVIDERS: Family Provider Family Medicine; PCP Family Medicine; Referring Provider Anesthesiology Pain Medicine; Visit Provider Anesthesiology Pain Medicine
PROC: 3E0S3BZ Introduction of Anesthetic Agent into Epidural Space, Percutaneous Approach (ICD-10-PCS; CPT 62282; principal; 2018-09-29 10:05)
DX: S39.012A Strain of muscle, fascia and tendon of lower back, initial encounter (principal); M51.26 Other intervertebral disc displacement, lumbar region; K21.9 Gastro-esophageal reflux disease without esophagitis; Z87.891 Personal history of nicotine dependence; Z79.891 Long term (current) use of opiate analgesic
CPT/HCPCS: 62323; 64520; 64483; 77003; J7120; J3490

== ENCOUNTER → 2019-02-13 | Outpatient (CLI) | payer OTHER, SELFPAY ==
[2019-02-13 10:13] VITALS: BMI 61.0
[2019-02-13 12:40] LABS: Absolute Lymphocyte Count 1.55 X10^3/uL (0.83-4.51); Absolute Neutrophil Count 4.2 X10^3/uL (2.0-7.7); Basophil# 0.02 X10^3/uL; Basophil% 0.3 % (0-1); Eosinophil# 0.17 X10^3/uL; Eosinophils% 2.5 % (0-5); Hematocrit 43.9 % (40-54); Lymphocyte # 1.55 X10^3/ul (4.0); Lymphocyte % 22.8 % (19-41); Mean Corp Hgb Conc 31.9 g/dL (32-36); Mean Corpuscular Hgb 28.6 pg (27.0-32.0); Mean Corpuscular Volume 89.6 fL (80-94); Mean Platelet Vol. 10.7 fl (6.2-12.0); Monocyte# 0.86 X10^3/uL; Monocyte% 12.6 % (0-10); NRBC Flagged by Analyzer 0 % (0-5); Neutrophil # 4.18 X10^3/uL (2.7-7.7); Neutrophil % 61.5 % (47-70); Platelet Count 240 K/mm3 (150-450); RBC Distribution Width CV 12.4 % (11.6-14.6); RBC Distribution Width SD 40.9 fl (35.1-43.9); White Blood Count 6.8 K/mm3 (4.4-11.0)
[2019-02-13 13:07] LABS: Hemoglobin A1c 5.1 % (4.2-6.3)
[2019-02-13 13:25] LABS: ALB/GLOB Ratio 0.8 RATIO (0.9-2.4); AST(SGOT) 18 U/L (15-37); Alanine Aminotransfer ALT/SGPT 30 U/L (16-61); Albumin, Serum 3.2 g/dL (3.2-5.0); Alkaline Phosphatase 95 U/L (45-117); Anion Gap 5 (5-15); BUN 13 mg/dL (7-18); BUN/Creat Ratio 16.8 RATIO (10-20); Calcium,Total 8.6 mg/dL (8.5-10.1); Chloride 108 mmol/L (98-107); Cholesterol 129 mg/dL (200); Creatinine, Serum 0.78 mg/dL (0.70-1.30); EST Glomerular Filtration Rate 122 mL/min (>60); Est Glom Filt Rate - Afr Amer 147 mL/min (>60); Globulin 4.2 g/dL (2.2-4.2); Glucose 93 mg/dL (74-106); High Density Lipoprotein 44 mg/dL; Potassium 4.3 mmol/L (3.5-5.1); Protein, Total 7.4 g/dL (6.4-8.2); Sodium Level 141 mmol/L (136-145); T4 Free Direct 1.06 ng/dL (0.76-1.46); Thyroid Stim Hormone (TSH) 2.13 uIU/mL (0.358-3.74); Triglycerides 77 mg/dL; Very Low Density Lipoprotein 15 mg/dL (5-40)
== END | disposition home or self-care (01) ==
PROVIDERS: Family Provider Family Medicine; PCP Internal Medicine; Visit Provider Internal Medicine
DX: E66.01 Morbid (severe) obesity due to excess calories (principal); Z68.44 Body mass index [BMI] 60.0-69.9, adult
CPT/HCPCS: 36415; 80053; 80061; 83036; 84439; 84443; 85025

== ENCOUNTER → 2019-03-17 | Outpatient (CLI) | payer OTHER, SELFPAY ==
[2019-03-13 10:23] VITALS: BMI 61.3
== END | disposition home or self-care (01) ==
LOC: SL 12:10
PROVIDERS: Family Provider Internal Medicine; PCP Internal Medicine; Referring Provider Internal Medicine; Visit Provider Internal Medicine
DX: G47.10 Hypersomnia, unspecified (principal)
CPT/HCPCS: 95806

== ENCOUNTER → 2020-06-20 13:51 | Outpatient (CLI) | payer OTHER, SELFPAY ==
[2020-06-20 13:30] VITALS: BMI 66.2
[2020-06-20 15:32] LABS: Absolute Lymphocyte Count 1.88 X10^3/uL (0.83-4.51); Absolute Neutrophil Count 4.7 X10^3/uL (2.0-7.7); Basophil# 0.03 X10^3/uL; Basophil% 0.4 % (0-1); Eosinophil# 0.17 X10^3/uL; Eosinophils% 2.2 % (0-5); Hemoglobin 14.9 g/dL (13.0-16.5); Lymphocyte # 1.88 X10^3/ul (4.0); Lymphocyte % 24.7 % (19-41); Mean Corp Hgb Conc 31.7 g/dL (32-36); Mean Corpuscular Hgb 28.1 pg (27.0-32.0); Mean Corpuscular Volume 88.5 fL (80-94); Mean Platelet Vol. 9.6 fl (6.2-12.0); Monocyte% 10.5 % (0-10); NRBC Flagged by Analyzer 0 % (0-5); Neutrophil # 4.68 X10^3/uL (2.7-7.7); Neutrophil % 61.5 % (47-70); Platelet Count 331 K/mm3 (150-450); RBC Distribution Width CV 13.1 % (11.6-14.6); RBC Distribution Width SD 42.6 fl (35.1-43.9); Red Blood Count 5.31 M/mm3 (4.6-6.2); White Blood Count 7.6 K/mm3 (4.4-11.0)
[2020-06-20 15:59] LABS: ALB/GLOB Ratio 0.7 RATIO (0.9-2.4); AST(SGOT) 24 U/L (15-37); Alanine Aminotransfer ALT/SGPT 45 U/L (16-61); Albumin, Serum 3.4 g/dL (3.2-5.0); Alkaline Phosphatase 109 U/L (45-117); Anion Gap 5 (5-15); BUN 13 mg/dL (7-18); BUN/Creat Ratio 15.8 RATIO (10-20); Calcium,Total 8.8 mg/dL (8.5-10.1); Chloride 101 mmol/L (98-107); Cholesterol 181 mg/dL (200); Creatinine, Serum 0.82 mg/dL (0.70-1.30); EST Glomerular Filtration Rate 113 mL/min (>60); Est Glom Filt Rate - Afr Amer 136 mL/min (>60); Globulin 4.9 g/dL (2.2-4.2); Glucose 88 mg/dL (74-106); High Density Lipoprotein 47 mg/dL; Potassium 4.4 mmol/L (3.5-5.1); Protein, Total 8.3 g/dL (6.4-8.2); Sodium Level 138 mmol/L (136-145); Triglycerides 134 mg/dL; Very Low Density Lipoprotein 27 mg/dL (5-40)
== END ==
PROVIDERS: PCP Internal Medicine; Referring Provider Internal Medicine; Visit Provider Internal Medicine
DX: I10 Essential (primary) hypertension (principal)
CPT/HCPCS: 36415; 80053; 80061; 85025

== ENCOUNTER → 2020-06-24 20:01 | Outpatient (CLI) | payer OTHER, SELFPAY ==
[2020-06-20 13:30] VITALS: BMI 66.2
== END ==
PROVIDERS: PCP Internal Medicine; Referring Provider Internal Medicine; Visit Provider Internal Medicine
DX: G47.33 Obstructive sleep apnea (adult) (pediatric) (principal)
CPT/HCPCS: 95811

== ENCOUNTER → 2020-07-05 09:00 | Outpatient (CLI) | payer OTHER, SELFPAY ==
[2020-06-30 11:01] VITALS: BMI 66.2
== END ==
PROVIDERS: PCP Internal Medicine; Visit Provider Nurse Practitioner Acute Care
DX: Z46.89 Encounter for fitting and adjustment of other specified devices (principal)

== ENCOUNTER → 2020-08-24 08:46 | Outpatient (CLI) | payer OTHER, SELFPAY ==
[2020-08-11 14:03] VITALS: BMI 69.9
[2020-08-24 12:29] LABS: Hematocrit 44.2 % (40-54); Hemoglobin 14.3 g/dL (13.0-16.5); Mean Corp Hgb Conc 32.4 g/dL (32-36); Mean Corpuscular Hgb 28.7 pg (27.0-32.0); Mean Corpuscular Volume 88.6 fL (80-94); Mean Platelet Vol. 10.9 fl (6.2-12.0); Platelet Count 263 K/mm3 (150-450); RBC Distribution Width CV 13.4 % (11.6-14.6); RBC Distribution Width SD 43.6 fl (35.1-43.9); Red Blood Count 4.99 M/mm3 (4.6-6.2); White Blood Count 5.4 K/mm3 (4.4-11.0)
[2020-08-24 12:46] LABS: Vitamin B12 377 pg/mL (211-911); Vitamin D,25 Hydroxy 35.7 ng/mL
[2020-08-24 12:51] LABS: Hemoglobin A1c 5.1 % (3.8-5.6)
[2020-08-24 12:58] LABS: ALB/GLOB Ratio 0.9 RATIO (0.9-2.4); AST(SGOT) 30 U/L (15-37); Alanine Aminotransfer ALT/SGPT 68 U/L (16-61); Albumin, Serum 3.6 g/dL (3.2-5.0); Alkaline Phosphatase 98 U/L (45-117); Anion Gap 6 (5-15); BUN 15 mg/dL (7-18); Calcium,Total 8.9 mg/dL (8.5-10.1); Chloride 105 mmol/L (98-107); Cholesterol 135 mg/dL (200); Creatinine, Serum 0.75 mg/dL (0.70-1.30); EST Glomerular Filtration Rate 125 mL/min (>60); Est Glom Filt Rate - Afr Amer 151 mL/min (>60); Ferritin 92 ng/mL (26-388); Globulin 4.1 g/dL (2.2-4.2); Glucose 103 mg/dL (74-106); High Density Lipoprotein 39 mg/dL; Iron 49 ug/dL (65-175); Magnesium 2.2 mg/dL (1.6-2.6); Potassium 4.3 mmol/L (3.5-5.1); Protein, Total 7.7 g/dL (6.4-8.2); Sodium Level 140 mmol/L (136-145); Thyroid Stim Hormone (TSH) 2.22 uIU/mL (0.358-3.74); Triglycerides 94 mg/dL; Very Low Density Lipoprotein 19 mg/dL (5-40)
[2020-08-29 12:07] LABS: Vitamin B1, Thiamine 167.5 nmol/L (66.5-200.0)
[2020-08-29 13:01] LABS: Zinc, Plasma or Serum 81 ug/dL (44-115)
== END ==
PROVIDERS: Physician Assistant; PCP Internal Medicine
DX: I10 Essential (primary) hypertension (principal); E66.01 Morbid (severe) obesity due to excess calories; G47.33 Obstructive sleep apnea (adult) (pediatric); Z99.89 Dependence on other enabling machines and devices
CPT/HCPCS: 36415; 80053; 80061; 82306; 82607; 82728; 82746; 83036; 83540; 83735; 84425; 84443; 84630; 85027

== ENCOUNTER → 2020-09-27 10:59 | Outpatient (CLI) | payer OTHER, SELFPAY ==
[2020-08-30 13:48] VITALS: BMI 65.8
[2020-09-27 12:52] LABS: Anion Gap 4 (5-15); BUN 13 mg/dL (7-18); BUN/Creat Ratio 19.1 RATIO (10-20); Calcium,Total 9.3 mg/dL (8.5-10.1); Chloride 104 mmol/L (98-107); Creatinine, Serum 0.68 mg/dL (0.70-1.30); EST Glomerular Filtration Rate 140 mL/min (>60); Est Glom Filt Rate - Afr Amer 170 mL/min (>60); Glucose 103 mg/dL (74-106); Potassium 4.3 mmol/L (3.5-5.1); Sodium Level 140 mmol/L (136-145)
== END ==
PROVIDERS: PCP Internal Medicine; Referring Provider Internal Medicine; Visit Provider Internal Medicine
DX: I10 Essential (primary) hypertension (principal)
CPT/HCPCS: 36415; 80048

== ENCOUNTER → 2021-03-10 09:36 | Outpatient (CLI) | payer OTHER, SELFPAY ==
[2021-03-10 12:10] LABS: Hematocrit 44.4 % (40-54); Hemoglobin 14.3 g/dL (13.0-16.5); Mean Corp Hgb Conc 32.2 g/dL (32-36); Mean Corpuscular Hgb 28.4 pg (27.0-32.0); Mean Corpuscular Volume 88.1 fL (80-94); Mean Platelet Vol. 11.4 fl (6.2-12.0); Platelet Count 297 K/mm3 (150-450); RBC Distribution Width CV 13.2 % (11.6-14.6); RBC Distribution Width SD 42.5 fl (35.1-43.9); Red Blood Count 5.04 M/mm3 (4.6-6.2); White Blood Count 5.4 K/mm3 (4.4-11.0)
[2021-03-10 12:33] LABS: Vitamin B12 714 pg/mL (211-911)
[2021-03-10 12:41] LABS: ALB/GLOB Ratio 0.7 RATIO (0.9-2.4); AST(SGOT) 56 U/L (15-37); Alanine Aminotransfer ALT/SGPT 126 U/L (16-61); Albumin, Serum 3.3 g/dL (3.2-5.0); Alkaline Phosphatase 107 U/L (45-117); Anion Gap 6 (5-15); BUN 11 mg/dL (7-18); BUN/Creat Ratio 16.3 RATIO (10-20); Calcium,Total 9.3 mg/dL (8.5-10.1); Chloride 104 mmol/L (98-107); Creatinine, Serum 0.67 mg/dL (0.70-1.30); EST Glomerular Filtration Rate 141 mL/min (>60); Est Glom Filt Rate - Afr Amer 171 mL/min (>60); Ferritin 267 ng/mL (26-388); Globulin 4.6 g/dL (2.2-4.2); Glucose 96 mg/dL (74-106); Iron 79 ug/dL (65-175); Magnesium 2.3 mg/dL (1.6-2.6); Potassium 3.9 mmol/L (3.5-5.1); Protein, Total 7.9 g/dL (6.4-8.2); Sodium Level 137 mmol/L (136-145)
[2021-03-18 12:53] LABS: Zinc, Plasma or Serum 89 ug/dL (44-115)
== END ==
PROVIDERS: PCP Internal Medicine
DX: G47.33 Obstructive sleep apnea (adult) (pediatric) (principal); E61.1 Iron deficiency; E55.9 Vitamin D deficiency, unspecified; I10 Essential (primary) hypertension; E61.7 Deficiency of multiple nutrient elements; K90.9 Intestinal malabsorption, unspecified; E66.01 Morbid (severe) obesity due to excess calories; Z68.43 Body mass index [BMI] 50.0-59.9, adult; Z99.89 Dependence on other enabling machines and devices
CPT/HCPCS: 36415; 80053; 82607; 82728; 82746; 83540; 83735; 84630; 85027

== ENCOUNTER 2021-08-05 06:59 | Outpatient (CLI) | payer BC, SELFPAY ==
[2021-08-05 07:55] LABS: Absolute Lymphocyte Count 1.64 X10^3/uL (0.83-4.51); Absolute Neutrophil Count 3.1 X10^3/uL (2.0-7.7); Basophil# 0.02 X10^3/uL; Basophil% 0.4 % (0-1); Eosinophil# 0.15 X10^3/uL; Eosinophils% 2.7 % (0-5); Hematocrit 41.8 % (40-54); Hemoglobin 13.9 g/dL (13.0-16.5); Lymphocyte # 1.64 X10^3/ul (0.83-4.51); Lymphocyte % 29.6 % (19-41); Mean Corp Hgb Conc 33.3 g/dL (32-36); Mean Corpuscular Hgb 29.6 pg (27.0-32.0); Mean Corpuscular Volume 89.1 fL (80-94); Mean Platelet Vol. 10.8 fl (6.2-12.0); Monocyte# 0.61 X10^3/uL; NRBC Flagged by Analyzer 0 % (0-5); Neutrophil # 3.11 X10^3/uL (2.7-7.7); Neutrophil % 56.1 % (47-70); Platelet Count 262 K/mm3 (150-450); RBC Distribution Width CV 13.3 % (11.6-14.6); RBC Distribution Width SD 43.3 fl (35.1-43.9); Red Blood Count 4.69 M/mm3 (4.6-6.2); White Blood Count 5.5 K/mm3 (4.4-11.0)
[2021-08-05 08:12] LABS: ALB/GLOB Ratio 0.8 RATIO (0.9-2.4); AST(SGOT) 14 U/L (15-37); Alanine Aminotransfer ALT/SGPT 34 U/L (16-61); Albumin, Serum 3.3 g/dL (3.2-5.0); Alkaline Phosphatase 134 U/L (45-117); Anion Gap 5 (5-15); BUN 11 mg/dL (7-18); BUN/Creat Ratio 17.3 RATIO (10-20); Calcium,Total 8.6 mg/dL (8.5-10.1); Chloride 105 mmol/L (98-107); Cholesterol 103 mg/dL (200); Creatinine, Serum 0.64 mg/dL (0.70-1.30); EST Glomerular Filtration Rate 151 mL/min (>60); Est Glom Filt Rate - Afr Amer 182 mL/min (>60); Globulin 4.1 g/dL (2.2-4.2); Glucose 81 mg/dL (74-106); High Density Lipoprotein 36 mg/dL; Potassium 3.9 mmol/L (3.5-5.1); Protein, Total 7.4 g/dL (6.4-8.2); Sodium Level 138 mmol/L (136-145); Triglycerides 44 mg/dL; Very Low Density Lipoprotein 9 mg/dL (5-40)
== END 2021-08-05 23:59 | disposition home or self-care (01) ==
LOC: LAB 07:01
PROVIDERS: PCP Internal Medicine; Visit Provider Internal Medicine
DX: Z00.00 Encounter for general adult medical examination without abnormal findings (principal)
CPT/HCPCS: 36415; 80053; 80061; 85025

== ENCOUNTER 2021-09-29 13:59 | Outpatient (CLI) | payer BC, SELFPAY ==
--- NOTE | 2021-09-29 14:00 | RAD_ITS ---
STUDY: XR Wrist Min 3 Views REASON FOR EXAM: Male, 36 years old. PAIN TECHNIQUE: XR Wrist Min 3 Views RIGHT COMPARISON: None FINDINGS: There are no acute findings of the visualized distal radius and ulna. There are no acute findings of the radiocarpal articulation. Normal distal radioulnar articulation. Normal carpal bones. Normal carpal articulations. There are no acute findings of the carpometacarpal articulation of the thumb. Normal second through fifth carpometacarpal articulations. There are no acute findings of the visualized metacarpal bones. The soft tissue structures are unremarkable. RAD/Wrist min 3 Views IMPRESSION: There are no acute findings of the wrist. Electronically Signed: Jose Lux MD at 17:10 EDT ,
--- NOTE | 2021-09-29 14:00 | RAD_ITS ---
STUDY: X-RAY XR Forearm 2 Views REASON FOR EXAM: Male, 36 years old. PAIN TECHNIQUE: XR Forearm 2 Views COMPARISON: None. FINDINGS: There is no demonstrated soft tissue swelling. Normal visualized radius. Normal visualized ulna. RAD/Forearm 2 Views IMPRESSION: Normal x-ray examination of the radius and ulna. Electronically Signed: Jose Lux MD at 17:09 EDT ,
== END 2021-09-29 23:59 | disposition home or self-care (01) ==
LOC: RAD 14:00
PROVIDERS: PCP Internal Medicine; Visit Provider Physician Assistant
DX: M25.531 Pain in right wrist (principal); M89.8X3 Other specified disorders of bone, forearm
CPT/HCPCS: 73090; 73110

== ENCOUNTER → 2022-02-06 | Outpatient (CLI) | payer OTHER, SELFPAY ==
[2022-02-06 07:58] LABS: Hematocrit 41.2 % (40-54); Hemoglobin 14.1 g/dL (13.0-16.5); Mean Corp Hgb Conc 34.2 g/dL (32-36); Mean Corpuscular Hgb 31.5 pg (27.0-32.0); Mean Corpuscular Volume 92.2 fL (80-94); Mean Platelet Vol. 9.8 fl (6.2-12.0); Platelet Count 257 K/mm3 (150-450); RBC Distribution Width SD 44.1 fl (35.1-43.9); Red Blood Count 4.47 M/mm3 (4.6-6.2); White Blood Count 5.4 K/mm3 (4.4-11.0)
[2022-02-06 09:17] LABS: Vitamin B12 760 pg/mL (211-911); Vitamin D,25 Hydroxy 91.4 ng/mL
[2022-02-06 09:26] LABS: ALB/GLOB Ratio 0.9 RATIO (0.9-2.4); AST(SGOT) 21 U/L (15-37); Alanine Aminotransfer ALT/SGPT 39 U/L (16-61); Albumin, Serum 3.3 g/dL (3.2-5.0); Alkaline Phosphatase 115 U/L (45-117); Anion Gap 3 (5-15); BUN 12 mg/dL (7-18); BUN/Creat Ratio 16.4 RATIO (10-20); Calcium,Total 8.6 mg/dL (8.5-10.1); Chloride 107 mmol/L (98-107); Cholesterol 103 mg/dL (200); Creatinine, Serum 0.73 mg/dL (0.70-1.30); EST Glomerular Filtration Rate 128 mL/min (>60); Est Glom Filt Rate - Afr Amer 155 mL/min (>60); Ferritin 148 ng/mL (26-388); Globulin 3.8 g/dL (2.2-4.2); Glucose 84 mg/dL (74-106); High Density Lipoprotein 45 mg/dL; Iron 102 ug/dL (65-175); Magnesium 2.1 mg/dL (1.6-2.6); Potassium 3.8 mmol/L (3.5-5.1); Protein, Total 7.1 g/dL (6.4-8.2); Sodium Level 141 mmol/L (136-145); Triglycerides 40 mg/dL; Very Low Density Lipoprotein 8 mg/dL (5-40)
[2022-02-11 00:06] LABS: Vitamin B1, Thiamine 130.5 nmol/L (66.5-200.0)
[2022-02-11 08:57] LABS: Zinc, Plasma or Serum 58 ug/dL (44-115)
== END | disposition home or self-care (01) ==
LOC: LAB 07:17
PROVIDERS: PCP Internal Medicine; Referring Provider Nurse Practitioner Family; Visit Provider Nurse Practitioner Family
DX: E66.01 Morbid (severe) obesity due to excess calories (principal); Z68.42 Body mass index [BMI] 45.0-49.9, adult; K90.9 Intestinal malabsorption, unspecified; K21.9 Gastro-esophageal reflux disease without esophagitis; G47.33 Obstructive sleep apnea (adult) (pediatric); I10 Essential (primary) hypertension; R21 Rash and other nonspecific skin eruption; Z98.84 Bariatric surgery status; Z99.89 Dependence on other enabling machines and devices
CPT/HCPCS: 36415; 80053; 80061; 82306; 82607; 82728; 82746; 83540; 83735; 84425; 84630; 85027

== ENCOUNTER → 2023-05-28 | Outpatient (CLI) | payer OTHER, SELFPAY ==
[2023-05-28 10:52] LABS: Red Blood Cells-Urine 0 SEEN /hpf (0-5)
[2023-05-28 12:09] LABS: Color, Urine Yellow (Yellow); Glucose, Dipstick Normal (Normal); Ketone-Dipstick 5 mg/dl (Negative); Leukocyte Esterase-Dipstick 100 /ul (Negative); Nitrite-Dipstick Negative (Negative); Occult Blood-Urine 10 /ul (Negative); Protein-Dipstick 15 mg/dl (Negative); Urine Clarity Clear (Clear); Urine Urobilinogen 4 mg/dl (Normal)
[2023-05-28 12:11] LABS: Urine Bilirubin Dipstick 1 mg/dL (Negative)
[2023-05-28 12:33] LABS: Bacteria RARE /hpf (None Seen); Mucous, Urine 1+ /hpf (<or=2+); Squamous Epithelial Cells - UA 0-5 SEEN /hpf (0-5); White Blood Cells 0-5 SEEN /hpf (0-5)
== END | disposition home or self-care (01) ==
PROVIDERS: PCP Internal Medicine; Visit Provider Physician Assistant
DX: R10.9 Unspecified abdominal pain (principal)
CPT/HCPCS: 81001; 87086

== ENCOUNTER → 2023-06-03 | Outpatient (CLI) | payer OTHER, SELFPAY ==
[2023-06-03 16:12] LABS: Absolute Lymphocyte Count 2.46 X10^3/uL (0.83-4.51); Basophil# 0.04 X10^3/uL; Basophil% 0.6 % (0-1); Eosinophil# 0.16 X10^3/uL; Eosinophils% 2.5 % (0-5); Hematocrit 42.3 % (40-54); Lymphocyte # 2.46 X10^3/ul (0.83-4.51); Lymphocyte % 38.9 % (19-41); Mean Corp Hgb Conc 33.1 g/dL (32-36); Mean Corpuscular Hgb 29.9 pg (27.0-32.0); Mean Corpuscular Volume 90.4 fL (80-94); Mean Platelet Vol. 10.1 fl (6.2-12.0); Monocyte# 0.61 X10^3/uL; Monocyte% 9.6 % (0-10); NRBC Flagged by Analyzer 0 % (0-5); Neutrophil # 3.04 X10^3/uL (2.7-7.7); Neutrophil % 48.1 % (47-70); Platelet Count 305 K/mm3 (150-450); RBC Distribution Width CV 12.4 % (11.6-14.6); RBC Distribution Width SD 40.6 fl (35.1-43.9); Red Blood Count 4.68 M/mm3 (4.6-6.2); White Blood Count 6.3 K/mm3 (4.4-11.0)
[2023-06-03 16:35] LABS: Vitamin B12 1030 pg/mL (211-911); Vitamin D,25 Hydroxy 44.3 ng/mL
[2023-06-03 16:36] LABS: ALB/GLOB Ratio 0.8 RATIO (0.9-2.4); AST(SGOT) 19 U/L (15-37); Alanine Aminotransfer ALT/SGPT 36 U/L (16-61); Albumin, Serum 3.4 g/dL (3.2-5.0); Alkaline Phosphatase 110 U/L (45-117); Anion Gap 3 (5-15); BUN 12 mg/dL (7-18); BUN/Creat Ratio 17.7 RATIO (10-20); Calcium,Total 8.6 mg/dL (8.5-10.1); Chloride 106 mmol/L (98-107); Cholesterol 108 mg/dL (200); Creatinine, Serum 0.68 mg/dL (0.70-1.30); EST Glomerular Filtration Rate 138 mL/min (>60); Est Glom Filt Rate - Afr Amer 168 mL/min (>60); Globulin 4.1 g/dL (2.2-4.2); Glucose 95 mg/dL (74-106); High Density Lipoprotein 42 mg/dL; Potassium 4.2 mmol/L (3.5-5.1); Protein, Total 7.5 g/dL (6.4-8.2); Sodium Level 138 mmol/L (136-145); Triglycerides 145 mg/dL; Very Low Density Lipoprotein 29 mg/dL (5-40)
== END | disposition home or self-care (01) ==
LOC: BIMLAB 14:49
PROVIDERS: PCP Internal Medicine; Referring Provider Internal Medicine; Visit Provider Internal Medicine
DX: I10 Essential (primary) hypertension (principal); Z98.84 Bariatric surgery status
CPT/HCPCS: 36415; 80053; 80061; 82306; 82607; 85025

== ENCOUNTER → 2024-05-21 | Outpatient (CLI) | payer OTHER, SELFPAY ==
[2024-05-21 15:22] LABS: Absolute Lymphocyte Count 1.99 X10^3/uL (0.83-4.51); Absolute Neutrophil Count 2.9 X10^3/uL (2.0-7.7); Basophil# 0.03 X10^3/uL; Basophil% 0.5 % (0-1); Eosinophil# 0.11 X10^3/uL; Hematocrit 41.8 % (40-54); Hemoglobin 14.2 g/dL (13.0-16.5); Lymphocyte # 1.99 X10^3/ul (0.83-4.51); Lymphocyte % 35.5 % (19-41); Mean Corpuscular Hgb 29.5 pg (27.0-32.0); Mean Corpuscular Volume 86.9 fL (80-94); Mean Platelet Vol. 10.1 fl (6.2-12.0); Monocyte% 10.7 % (0-10); NRBC Flagged by Analyzer 0 % (0-5); Neutrophil # 2.87 X10^3/uL (2.7-7.7); Neutrophil % 51.1 % (47-70); Platelet Count 300 K/mm3 (150-450); RBC Distribution Width CV 12.6 % (11.6-14.6); RBC Distribution Width SD 40.2 fl (35.1-43.9); Red Blood Count 4.81 M/mm3 (4.6-6.2); White Blood Count 5.6 K/mm3 (4.4-11.0)
[2024-05-21 15:59] LABS: ALB/GLOB Ratio 0.9 RATIO (0.9-2.4); AST(SGOT) 25 U/L (15-37); Alanine Aminotransfer ALT/SGPT 36 U/L (16-61); Albumin, Serum 3.6 g/dL (3.2-5.0); Alkaline Phosphatase 123 U/L (45-117); Anion Gap 8 (5-15); BUN 13 mg/dL (7-18); BUN/Creat Ratio 15.8 RATIO (10-20); Calcium,Total 8.9 mg/dL (8.5-10.1); Chloride 107 mmol/L (98-107); Cholesterol 135 mg/dL (200); Creatinine, Serum 0.82 mg/dL (0.70-1.30); EST Glomerular Filtration Rate 110 mL/min (>60); Est Glom Filt Rate - Afr Amer 133 mL/min (>60); Glucose 83 mg/dL (74-106); High Density Lipoprotein 52 mg/dL; Potassium 3.7 mmol/L (3.5-5.1); Protein, Total 7.6 g/dL (6.4-8.2); Sodium Level 137 mmol/L (136-145); Triglycerides 71 mg/dL; Very Low Density Lipoprotein 14 mg/dL (5-40)
== END | disposition home or self-care (01) ==
LOC: BIMLAB 13:21
PROVIDERS: PCP Internal Medicine; Referring Provider Internal Medicine; Visit Provider Internal Medicine
DX: I10 Essential (primary) hypertension (principal)
CPT/HCPCS: 36415; 80053; 80061; 85025